=== PATIENT | male | born 1985 | race African-American/Black ===

== ENCOUNTER 2023-02-24 13:16 | Inpatient (IN) | payer MEDICARE, MEDICAID ==
[~2023-02-24] VITALS: Ht 182.9 cm; Wt 83.0 kg
[2023-02-24] MEDS ORDERED: VANCOMYCIN 1G PREMIX 200 ML IV ONE (16:45)
[2023-02-24] MEDS ORDERED: CEFTRIAXONE 1GM PREMIX 50 ML IV ONE (16:45)
[2023-02-24] MEDS ORDERED: SODIUM CHLORIDE 0.9% 1,000 ML IV ONE (16:45)
[2023-02-24 17:05] LABS: BASOPHILS % 0.5 % (0.0-2.0); EOSINOPHILS % 1.3 % (0.0-5.0); HEMATOCRIT. 37.5 % (42.0-52.0); HEMOGLOBIN. 13.1 g/dL (14.0-18.0); LYMPHOCYTES % 16.9 % (20.0-50.0); MEAN CORPUSCULAR HEMOGLOBIN 30.2 pg (28.0-32.0); MEAN CORPUSCULAR VOLUME 86.3 fL (80.0-94.0); MONOCYTES % 8.9 % (2.0-8.0); NEUTROPHILS % 72.4 % (40.0-76.0); PLATELET 193 x1000/uL (130-400); RED BLOOD CELL COUNT 4.35 mill/uL (4.7-6.1); RED CELL DISTRIBUTION WIDTH 12.5 % (11.6-14.6)
[2023-02-24 17:15] LABS: CHLORIDE 102 mEq/L (98-107)
[2023-02-24 17:16] LABS: INR 1.1; PROTHROMBIN TIME 11.3 sec (9.6-11.0)
[2023-02-24] MEDS ORDERED: ONDANSETRON HCL 4MG/2ML INJ IV PRN (18:45)
[2023-02-24] MEDS ORDERED: MORPHINE SULFATE 2 MG/ML CPJ (NOT FOR IM USE) IV PRN (18:45)
[2023-02-24] MEDS ORDERED: ACETAMINOPHEN 325MG TABLET PO PRN (18:45)
[2023-02-24] MEDS ORDERED: IPRATROPIUM/ALBUTEROL 0.5-3(2.5)MG/3ML NEB HHN PRN (18:45)
[2023-02-24] MEDS ORDERED: CLONIDINE 0.1MG TABLET PO PRN (18:45)
[2023-02-24] MEDS ORDERED: DIPHENHYDRAMINE 50MG/ML VIAL IV PRN (18:45)
[2023-02-24] MEDS ORDERED: PIPERACILLIN/TAZ 3.375G PREMIX 50 ML IV NR (19:30)
[2023-02-24 20:15] VITALS: BP 96/62
[2023-02-24] MEDS ORDERED: DEXTROSE 50% WATER 50ML SYRINGE IV PRN (20:45)
[2023-02-24 21:00] VITALS: BP 96/62
[2023-02-24] MEDS: BLOOD SUGAR DIAGNOSTIC STRIP TEST SCH (21:00)
[2023-02-24] MEDS: INSULIN LISPRO 100 UNITS/ML SUBCUT SCH (21:00)
[2023-02-24] MEDS ORDERED: VANCOMYCIN 1.25GM PMX (XELLIA) 250 ML IV SCH (21:30)
[2023-02-24] MEDS: PIPERACILLIN/TAZOBACTAM 3.375 G in DEXTROSE 5% WATER 50 ML IV SCH (23:20)
[2023-02-25] VITALS: BP 115/63
[2023-02-25] MEDS ORDERED: VANCOMYCIN 1.25GM PMX (XELLIA) 250 ML IV SCH
[2023-02-25 04:00] VITALS: BP 119/82
[2023-02-25] MEDS ORDERED: PIPERACILLIN/TAZOBACTAM 3.375 G in DEXTROSE 5% WATER 50 ML IV SCH (06:00)
[2023-02-25] MEDS: INSULIN LISPRO 100 UNITS/ML SUBCUT SCH ×4 (06:21→21:00)
[2023-02-25] MEDS: PIPERACILLIN/TAZOBACTAM 3.375 G in DEXTROSE 5% WATER 50 ML IV SCH ×3 (06:24→21:43)
[2023-02-25 08:00] VITALS: BP 118/74
[2023-02-25] MEDS: BLOOD SUGAR DIAGNOSTIC STRIP TEST SCH ×4 (09:00→21:42)
[2023-02-25] MEDS ORDERED: INFLUENZA VACCINE 05/PF 0.5 ML SYRINGE IM ONE (09:00)
[2023-02-25] MEDS ORDERED: PNEUMOCOCCAL 23-VAL P-SAC VAC 0.5 ML IM ONE (09:00)
[2023-02-25 10:31] LABS: BASOPHILS % 0.4 % (0.0-2.0); EOSINOPHILS % 1.8 % (0.0-5.0); HEMATOCRIT. 37.3 % (42.0-52.0); LYMPHOCYTES % 17.7 % (20.0-50.0); MEAN CORPUSCULAR HEMOGLOBIN 30.5 pg (28.0-32.0); MEAN CORPUSCULAR VOLUME 87.2 fL (80.0-94.0); MEAN PLATELET VOLUME 10.4 fl (7.4-10.4); MONOCYTES % 10.9 % (2.0-8.0); NEUTROPHILS % 69.2 % (40.0-76.0); PLATELET 193 x1000/uL (130-400); RED BLOOD CELL COUNT 4.28 mill/uL (4.7-6.1); RED CELL DISTRIBUTION WIDTH 12.6 % (11.6-14.6)
[2023-02-25 10:41] LABS: CHLORIDE 108 mEq/L (98-107)
[2023-02-25 11:26] LABS: HEPATITIS B SURFACE ANTIGEN NEGATIVE
[2023-02-25] MEDS ORDERED: NALOXONE HCL 0.4MG/ML VIAL IV PRN (12:45)
[2023-02-25] MEDS ORDERED: LORAZEPAM 2MG/ML CPJ IV NR (13:45)
[2023-02-25] MEDS: VANCOMYCIN 1G PREMIX 200 ML IV SCH ×2 (14:40→19:27)
[2023-02-25 20:00] VITALS: BP 121/86
[2023-02-26] VITALS: BP 120/82
[2023-02-26] MEDS: VANCOMYCIN 1G PREMIX 200 ML IV SCH (02:24)
[2023-02-26 04:00] VITALS: BP 121/66
[2023-02-26 04:57] LABS: BASOPHILS % 0.5 % (0.0-2.0); EOSINOPHILS % 4.3 % (0.0-5.0); HEMATOCRIT. 36.8 % (42.0-52.0); LYMPHOCYTES % 17.5 % (20.0-50.0); MEAN CORPUSCULAR HEMOGLOBIN 30.5 pg (28.0-32.0); MEAN CORPUSCULAR VOLUME 86.8 fL (80.0-94.0); MEAN PLATELET VOLUME 10.2 fl (7.4-10.4); NEUTROPHILS % 66.7 % (40.0-76.0); PLATELET 239 x1000/uL (130-400); RED BLOOD CELL COUNT 4.24 mill/uL (4.7-6.1); RED CELL DISTRIBUTION WIDTH 12.6 % (11.6-14.6)
[2023-02-26 05:08] LABS: CHLORIDE 108 mEq/L (98-107)
[2023-02-26 05:18] LABS: VANCOMYCIN TROUGH 45.3 ug/mL (5.0-10.0)
[2023-02-26] MEDS: PIPERACILLIN/TAZOBACTAM 3.375 G in DEXTROSE 5% WATER 50 ML IV SCH ×2 (06:01→21:26)
[2023-02-26] MEDS: INSULIN LISPRO 100 UNITS/ML SUBCUT SCH ×4 (06:01→21:00)
[2023-02-26] MEDS: BLOOD SUGAR DIAGNOSTIC STRIP TEST SCH ×4 (06:02→21:36)
[2023-02-26 08:00] VITALS: BP 118/67
[2023-02-26] MEDS ORDERED: POVIDONE-IODINE 10% TOPICAL SOLN 240ML TOP NR (08:30)
[2023-02-26 12:00] VITALS: BP 125/80
[2023-02-26 16:00] VITALS: BP 116/66
[2023-02-27] MEDS: VANCOMYCIN 1G PREMIX 200 ML IV SCH ×3 (02:01→20:19)
[2023-02-27] MEDS: INSULIN LISPRO 100 UNITS/ML SUBCUT SCH ×4 (06:37→21:00)
[2023-02-27 08:00] VITALS: BP 98/65
[2023-02-27] MEDS: BLOOD SUGAR DIAGNOSTIC STRIP TEST SCH ×4 (09:00→21:00)
[2023-02-27 12:00] VITALS: BP 110/70
[2023-02-27] MEDS ORDERED: RISP3 PO (13:17)
[2023-02-27] MEDS ORDERED: TRAZ-252 MT (13:17)
[2023-02-27] MEDS ORDERED: CETI-338 PO (13:17)
[2023-02-27] MEDS ORDERED: METF-414 MT (13:17)
[2023-02-27] MEDS ORDERED: POLY250017 MT (13:17)
[2023-02-27] MEDS: PIPERACILLIN/TAZOBACTAM 3.375 G in DEXTROSE 5% WATER 50 ML IV SCH ×2 (13:42→23:55)
[2023-02-27] MEDS ORDERED: LORAZEPAM 2MG/ML CPJ IV PRN (15:45)
[2023-02-27 16:10] VITALS: BP 106/71
[2023-02-27 20:00] VITALS: BP 116/77
[2023-02-28] VITALS: BP 117/84
[2023-02-28] MEDS: VANCOMYCIN 1G PREMIX 200 ML IV SCH ×2 (03:05→10:01)
[2023-02-28 04:00] VITALS: BP 121/76
[2023-02-28] MEDS: PIPERACILLIN/TAZOBACTAM 3.375 G in DEXTROSE 5% WATER 50 ML IV SCH ×3 (06:01→23:00)
[2023-02-28] MEDS: INSULIN LISPRO 100 UNITS/ML SUBCUT SCH ×4 (07:50→20:50)
[2023-02-28 08:00] VITALS: BP 120/80
[2023-02-28] MEDS: BLOOD SUGAR DIAGNOSTIC STRIP TEST SCH ×4 (08:08→20:50)
[2023-02-28 09:09] LABS: CHLORIDE 107 mEq/L (98-107)
[2023-02-28 12:00] VITALS: BP 105/67
[2023-02-28] MEDS ORDERED: LIDOCAINE HCL 4% (40MG/ML) SOLN 50ML TOP NR (13:00)
[2023-02-28 16:00] VITALS: BP 111/71
[2023-02-28] MEDS: VANCOMYCIN 750MG PREMIX 150 ML IV SCH (18:35)
[2023-02-28 20:00] VITALS: BP 117/84
[2023-03-01] VITALS: BP_SYST 107
[2023-03-01] MEDS: VANCOMYCIN 750MG PREMIX 150 ML IV SCH ×3 (01:55→19:03)
[2023-03-01] MEDS: PIPERACILLIN/TAZOBACTAM 3.375 G in DEXTROSE 5% WATER 50 ML IV SCH ×3 (06:03→21:32)
[2023-03-01] MEDS: BLOOD SUGAR DIAGNOSTIC STRIP TEST SCH ×4 (07:37→21:31)
[2023-03-01] MEDS: INSULIN LISPRO 100 UNITS/ML SUBCUT SCH ×4 (07:50→21:00)
[2023-03-01 08:00] VITALS: BP 98/71
[2023-03-01 12:00] VITALS: BP 103/62
[2023-03-01 16:00] VITALS: BP 101/70
[2023-03-01 20:00] VITALS: BP 103/65
[2023-03-02] VITALS: BP 101/65
[2023-03-02 04:00] VITALS: BP 103/74
[2023-03-02] MEDS: BLOOD SUGAR DIAGNOSTIC STRIP TEST SCH ×4 (06:59→21:09)
[2023-03-02] MEDS: INSULIN LISPRO 100 UNITS/ML SUBCUT SCH ×4 (07:50→21:00)
[2023-03-02 08:00] VITALS: BP 123/87
[2023-03-02 12:00] VITALS: BP 113/62
[2023-03-02 16:00] VITALS: BP 109/67
[2023-03-02 20:00] VITALS: BP 123/71
[2023-03-02] MEDS: TRAZODONE HCL 50MG TABLET PO SCH (21:08)
[2023-03-02] MEDS ORDERED: LORAZEPAM 2MG/ML CPJ IV PRN (21:15)
[2023-03-02] MEDS ORDERED: HALOPERIDOL LACTATE 5MG/ML VIAL IM PRN (21:15)
[2023-03-03 04:00] VITALS: BP 145/79
[2023-03-03] MEDS: INSULIN LISPRO 100 UNITS/ML SUBCUT SCH ×4 (07:50→21:00)
[2023-03-03] MEDS: BLOOD SUGAR DIAGNOSTIC STRIP TEST SCH ×4 (07:53→21:00)
[2023-03-03 08:00] VITALS: BP 100/50
[2023-03-03 12:00] VITALS: BP 106/76
[2023-03-03 16:00] VITALS: BP 108/70
[2023-03-03 20:00] VITALS: BP 113/76
[2023-03-03] MEDS: TRAZODONE HCL 50MG TABLET PO SCH (22:02)
[2023-03-04 04:00] VITALS: BP 105/70
[2023-03-04] MEDS: BLOOD SUGAR DIAGNOSTIC STRIP TEST SCH ×3 (07:34→17:20)
[2023-03-04] MEDS: INSULIN LISPRO 100 UNITS/ML SUBCUT SCH ×3 (07:34→17:50)
[2023-03-04 08:00] VITALS: BP 112/85
[2023-03-04 12:00] VITALS: BP 113/80
[2023-03-04 16:00] VITALS: BP 105/75
[2023-03-04 20:00] VITALS: BP 112/82
[2023-03-04] MEDS: TRAZODONE HCL 50MG TABLET PO SCH (22:14)
[2023-03-05 04:00] VITALS: BP 106/74
[2023-03-05] MEDS: BLOOD SUGAR DIAGNOSTIC STRIP TEST SCH ×2 (07:20→12:20)
[2023-03-05] MEDS: INSULIN LISPRO 100 UNITS/ML SUBCUT SCH ×2 (07:50→12:40)
[2023-03-05 08:00] VITALS: BP 97/67
[2023-03-05 12:00] VITALS: BP 106/67
[2023-03-05] MEDS ORDERED: RISPERIDONE 1MG TABLET PO SCH (21:00)
== END 2023-03-05 18:01 | disposition home health service (06) | DRG 264 ==
LOC: ER 14:04 → 4WST 17:33 → 6EST 02-27 16:03
PROVIDERS: ADMIT Internal Medicine; ATTEND Internal Medicine
PROC: 0JBR0ZZ Excision of Left Foot Subcutaneous Tissue and Fascia, Open Approach (ICD-10-PCS; principal; 2023-02-28)
DX: E11.52 Type 2 diabetes mellitus with diabetic peripheral angiopathy with gangrene (principal); I96 Gangrene, not elsewhere classified; L97.529 Non-pressure chronic ulcer of other part of left foot with unspecified severity; Z79.4 Long term (current) use of insulin; Z91.199 Patient's noncompliance with other medical treatment and regimen due to unspecified reason
CPT/HCPCS: 36415; 73620; 80048; 80053; 80202; 82962; 83036; 83605; 84145; 85025; 86803; 87340; 93005; 93922; 93923; 93970; 99285; C1893; J0696; J1815; J2060; J2543; J3370; J7030; J7060